=== PATIENT | male | born 1940 | race Caucasian/White ===

== ENCOUNTER → 2017-06-26 | Outpatient (CLI) | payer OTHER, BC ==
[~2017-06-26] VITALS: Ht 175.3 cm; Wt 70.2 kg
[~2017-06-26] MED LIST: ALLERCLEAR10 MG PO; ASPIR 8181 MG PO; BACLOFEN 10MG T10 MG PO; COQ-10100 MG PO; CRESTOR10 MG PO; FLAX OIL1000 MG PO; GINKGO BILOBA60 M1 PO; GLUCOSAMINE S1000 M3 PO; HM SAW PALMETT1 EACH PO; HYDROCODON-ACE1 EAC7 PO; IBUPROFEN 200200 M1 PO; METAMUCIL0.52 GM PO; MOBIC7.5 MG PO; OMEGA-31000 M1 PO; OMEPRAZOLE20 M1 PO; PERCOCET PO; VITAMIN D-32000 UNIT PO; VITAMIN E400 UNIT PO; VITAMINC500 PO
--- NOTE | ~2017-06-26 | HPC ---
[facility] [address] [place] [address] PAIN MANAGEMENT CONSULTATION Name: DANIAMOISES AYALA Room #: REG [facility] M..#: [id number] Admission: 06/26/17 Attend Phys: Moises Brooks DO Discharge: Date of : 44 Report #: [id number] THIS REPORT FOR: //name// CC: Henrik Brooks DATE OF SERVICE: 06/26/2017 REFERRING PHYSICIAN: Henrik Mccormick MD CHIEF COMPLAINT: Low back pain and lower extremity pain. HISTORY OF PRESENT ILLNESS: As you know, the patient is a 77-year-old male who returns today in followup visit, stating a pain level of 3/10. He was last seen in our clinic on 09/25/2014, where he was complaining of low back and neck pain. He returns today per the request of his primary care physician to address what appears to be lumbar radicular symptoms. He states the pain began about 3 weeks ago. No inciting injury or trauma. States his pain is sore, aching, numbness and tingling. Describes pain as exacerbated with bending; improves with medications, seated positions and repositioning. He has been referred back to our clinic to discuss options for potential lumbar radiculopathy. ALLERGIES: CIPROFLOXACIN. CURRENT MEDICATIONS: Percocet 5/325 one tab every 6 hours p.r.n. pain, lovastatin 10 mg per day, omeprazole 20 mg per day, glucosamine chondroitin 1 tab per day, loratadine 10 mg per day, flaxseed oil 1000 mg per day, cholecalciferol 2000 units per day, ascorbic acid 500 mg twice a day, vitamin E 400 units per day, aspirin 81 mg per day, Coenzyme Q 100 mg per day, omega-3 fish oil 1 tab per day, ginkgo biloba 60 mg twice a day, salt palmetto oil 1 tab per day, psyllium husk 1 tab per day. SOCIAL HISTORY: The patient denies tobacco use. He is a reformed smoker. Denies IV or illicit drug use. Admits to approximately 2-3 alcoholic beverages per day. He is unaccompanied at today's visit. IMAGING: No new imaging available. PQRS: The patient has no known osteoarthritis or rheumatoid arthritis. The patient states pain intensity of 3/10. He is not a fall risk, has not had a fall in past 3 months. He is not on blood thinners. He is not treated for hypertension. He is not on opioids. He is at low risk for opioid addiction. PHYSICAL EXAMINATION: VITAL SIGNS: Blood pressure 123/70, pulse 72, respiratory rate [address] [address] PAIN MANAGEMENT CONSULTATION Name: MOISES LYON Room #: REG [facility] M.R.#: [id number] Admission: 06/26/17 Attend Phys: Moises Brooks DO Discharge: Date of : 44 Report #: [id number] unlabored, patient is 97% on room air. Height 5 feet 9 inch tall, weight 154.8 pounds, BMI calculated 22.8. GENERAL: Well-developed, well-nourished, well-hydrated, 77-year-old male. He appears his stated age. He is placing current pain score at 3/10. HEENT: Normocephalic, atraumatic. Pupils equal, round, reactive to light. Extraocular muscles are intact. Sclerae nonicteric without injection. NEUROLOGIC: Cranial nerves 2 through 12 grossly intact. Speech is fluent. The patient deemed a good historian. LUNGS: Clear; no wheeze, rhonchi or rales. CARDIOVASCULAR: Regular. No appreciable gallop, no rub. ABDOMEN: Soft, nontender, nondistended. EXTREMITIES: Show no clubbing, no cyanosis, no edema. MUSCULOSKELETAL: Lower extremity strength appears equal and symmetrical 5/5, muscle bulk and tone equal and symmetrical. Seated straight leg raising negative. Supine straight leg raising mildly positive on the left. Ankle clonus negative. Babinski is negative. Deep tendon reflexes are symmetrical at patella and Achilles. Gait normal, stance normal. ASSESSMENT: 1. Lumbar radiculopathy. 2. Lumbosacral spondylosis with radicular symptoms. 3. Intractable pain. PLAN: 1. The patient has returned today in followup visit, requesting assistance to address what appears to be lumbar radicular symptoms. The patient is reporting pain at a level of 3/10. He denies injury or trauma that may have led to symptom development. He states the pain just began spontaneously about 3 weeks ago. Distribution indicates more of a radicular component. There is some back and buttock pain, but it does radiate down the left leg. He has been referred back to our clinic to trial a lumbar epidural injection. The patient was advised of the risks and the benefits of a lumbar epidural injection. These risks include but are not necessarily limited to bleeding, bruising, infection, worsening pain, no relief of pain, also risk of temporary or permanent muscle weakness, temporary or permanent nerve damage, possible paralysis and . The patient states he understood and wished to proceed. 2. No medication changes were made at today's visit. The patient to continue current medical therapy as previously prescribed. 3. We will see the patient back in followup visit for possible next in the series of epidural injections in approximately 1 month. PROCEDURE NOTE DESCRIPTION OF PROCEDURE: L5-S1 left paramedian epidural steroid injection under fluoroscopic guidance. [facility] [address] [address] PAIN MANAGEMENT CONSULTATION Name: MOISES LYON Room #: REG [facility] [id number] Admission: 06/26/17 Attend Phys: Moises Brooks DO Discharge: Date of : 44 Report #: [id number] This is the first procedure of the first series that the patient is undergoing. After obtaining written consent, the patient was taken back to the fluoroscopy suite, placed in a prone position with pillow under the abdomen to decrease lumbar lordosis. The skin overlying the lumbosacral area was then prepped and draped in aseptic fashion. The L5-S1 vertebral interspace was then identified by AP fluoroscopy. The skin and subcutaneous tissue overlying the target site of injection was anesthetized with 3 mL 1% lidocaine. A 20 gauge 3.5 inch Tuohy needle was then advanced under fluoroscopic guidance towards the epidural space using left paramedian approach. The epidural space was identified using loss of resistance to air technique. After negative aspiration for heme or cerebrospinal fluid, a total of 1 mL of Omnipaque was injected. A lumbar epidurogram was confirmed using both AP and lateral fluoroscopy. After negative aspiration for heme or cerebrospinal fluid, 5 mL of a solution containing 2 mL 40 mg per mL, 80 mg total triamcinolone, 3 mL lidocaine 1% was injected in increments. Contrast spread was noted posterior epidural space. The needle was then retracted approximately half way and needle tract flushed with 1 mL of 1% lidocaine. Needle was then removed. There were no apparent sensory or motor deficits in the lower extremity following the procedure. A sterile bandage was placed over the injection site. The heart rate, pulse, oximetry and blood pressure were continuously monitored after the procedure. There were no apparent complications. The patient tolerated the procedure well and was carefully escorted to the recovery room in stable condition. There were no apparent complications. After meeting discharge criteria, the patient was then discharged home. <ELECTRONICALLY SIGNED> By: Moises Brooks DO 07/04/17 [id number] Moises Brooks DO /nt
[2017-06-26 10:48] VITALS: BP 123/70
== END | disposition home or self-care (01) ==
LOC: PAIN 06:28
DX: M47.27 Other spondylosis with radiculopathy, lumbosacral region (principal); G89.29 Other chronic pain; Z88.8 Allergy status to other drugs, medicaments and biological substances; Z79.899 Other long term (current) drug therapy; Z87.891 Personal history of nicotine dependence; Z79.82 Long term (current) use of aspirin; Z79.891 Long term (current) use of opiate analgesic